=== PATIENT | male | born 1970 | race Caucasian/White ===

== ENCOUNTER 2020-12-14 11:05 | Emergency (ER) | payer OTHER ==
[~2020-12-14] VITALS: Ht 172.7 cm; Wt 73.9 kg
[2020-12-14] MEDS ORDERED: LIDOCAINE HCL/PF 1% 30 ML SDV ONE (11:20)
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
[2020-12-14] MEDS: LIDOCAINE HCL/PF 1% 30 ML VIAL TP ONE (11:38)
[2020-12-14] MEDS: TDAP [DIPH/PERTUSSIS/TET] 0.5 ML VIAL IM ONE (11:38)
--- NOTE | 2020-12-14 11:39 | NUR ---
PATIENT REFUSED TDAP ADMINISTRATION STATING THAT HE GOT IT 2 YEARS AGO.
[2020-12-14] MEDS ORDERED: CEPHALEXIN MONOHYDRATE 500 MG CAPSULE PO ONE (12:32)
[2020-12-14] MEDS: CEPHALEXIN MONOHYDRATE 500 MG CAPSULE PO ONE (12:35)
[2020-12-14] MEDS ORDERED: CEPH500C2 PO (13:00)
[2020-12-14] MEDS ORDERED: IBUP-1957 PO (13:00)
[2020-12-14 13:11] VITALS: BP 135/82
--- NOTE | 2020-12-14 13:11 | NUR ---
Patient discharged to home in stable condition. Written and verbal after care instructions given. Patient verbalizes understanding of instruction.The patient left ER in stable condition.
== END 2020-12-14 13:11 | disposition home or self-care (01) ==
LOC: ER 11:38
DX: S01.511A Laceration without foreign body of lip, initial encounter (principal); S01.81XA Laceration without foreign body of other part of head, initial encounter; R51.9 Headache, unspecified; V49.49XA Driver injured in collision with other motor vehicles in traffic accident, initial encounter; Y93.89 Activity, other specified; Y92.488 Other paved roadways as the place of occurrence of the external cause; Y99.8 Other external cause status
CPT/HCPCS: 12016; 70450; 70486; 99285; A6403; J3490